=== PATIENT | female | born 1975 | race Caucasian/White ===

== ENCOUNTER 2022-03-10 09:09 | Outpatient (CLI) | payer BC, SELFPAY ==
[2022-03-10 13:51] LABS: Albumin* 3.9 g/dL (3.3-5.0); Chloride* 105 mmol/L (96-114); Sodium* 136 mmol/L (135-149)
[2022-03-10 13:52] LABS: Potassium* 4.3 mmol/L (3.6-5.1)
[2022-03-10 13:54] LABS: Bilirubin Total* 0.4 mg/dL (0.1-1.5); Carbon Dioxide* 29 mmol/L (20-32); Cholesterol* 183 mg/dL (90-199); Creatinine* 0.7 mg/dL (0.5-1.5); Estimated Glomerular Filt Rate 108 ml/min; Total Protein* 6.2 g/dL (6.0-8.3)
[2022-03-10 13:55] LABS: Alanine Aminotransferase* 15 U/L (4-35); Alkaline Phosphatase* 57 U/L (40-150); Aspartate Amino Transferase* 22 U/L (12-35); Blood Urea Nitrogen* 16 mg/dL (5-24); Calcium* 8.8 mg/dL (8.4-10.6); Glucose* 97 mg/dL (60-115); HDL Cholesterol* 77 mg/dL (>=50); LDL Cholesterol Calculated 87 mg/dL (<100); Triglycerides* 94 mg/dL (40-149)
[2022-03-10 13:59] LABS: C Reactive Protein* < 0.5 mg/dL (0.5-1.0)
[2022-03-11 11:51] LABS: Rheumatoid Factor < 10 IU/mL (0-14)
[2022-03-12 02:30] LABS: Anti-Nuclear Ab(ANA)IgG ELISA None Detected (None Detected)
== END 2022-03-10 09:10 | disposition home or self-care (01) ==
PROVIDERS: PCP Physician Assistant Medical; Visit Provider Physician Assistant Medical
DX: Z00.00 Encounter for general adult medical examination without abnormal findings (principal); R10.819 Abdominal tenderness, unspecified site; M54.50 Low back pain, unspecified; Z13.6 Encounter for screening for cardiovascular disorders
CPT/HCPCS: 80053; 80061; 85027; 85651; 86039; 86140; 86431

== ENCOUNTER 2022-03-26 14:59 | Outpatient (CLI) | payer BC, SELFPAY | END 2022-03-26 15:00 | disposition home or self-care (01) | PROVIDERS: PCP Physician Assistant Medical; Visit Provider Otolaryngology | DX: Z00.00 Encounter for general adult medical examination without abnormal findings (principal); H91.8X9 Other specified hearing loss, unspecified ear | CPT/HCPCS: 84443; 86618 ==

== ENCOUNTER 2022-03-27 15:52 | Outpatient (CLI) | payer BC, SELFPAY ==
--- NOTE | 2022-03-27 16:00 | CRLHL7_ITS ---
For Patients: As a result of the Century Cures Act, medical imaging exams and procedure reports are released immediately into your electronic medical record. You may view this report before your referring provider. If you have questions, please contact your health care provider. INDICATION: MILD LLQ PAIN W/PALPATION, LT LOWER BACK PAIN COMPARISON: none TECHNIQUE: 2D jordan scale and color Doppler images were acquired of the pelvis using a transabdominal and transvaginal approach. FINDINGS: Sonographic images demonstrate a normal size and smooth outer contour of the uterus. Uterus measures 10.5 cm in length by 3.5 cm in AP diameter by 5.8 cm in transverse dimension. The myometrium has a normal uniform echotexture. The endometrial lining measures 9 mm in composite thickness. The right ovary measures 2.2 x 1.8 x 1.5 cm in size and the left ovary is not visualized. The right ovary demonstrates normal arterial and venous blood flow on color Doppler analysis. There are no suspicious fluid collections within the cul-de-sac. IMPRESSION: No uterine fibroid. No adnexal mass. Nonvisualization of the left ovary. Dictated by Derick Liu MD @ 03/28/2022 8:58:03 AM (Electronically Signed)
== END 2022-03-27 15:53 | disposition home or self-care (01) ==
LOC: US 15:53
PROVIDERS: PCP Physician Assistant Medical; Visit Provider Physician Assistant Medical
DX: R10.32 Left lower quadrant pain (principal); M54.50 Low back pain, unspecified
CPT/HCPCS: 76830; 76856

== ENCOUNTER 2022-05-06 17:18 | Outpatient (CLI) | payer BC, SELFPAY ==
--- NOTE | 2022-05-06 | CRLHL7_ITS ---
For Patients: As a result of the Century Cures Act, medical imaging exams and procedure reports are released immediately into your electronic medical record. You may view this report before your referring provider. If you have questions, please contact your health care provider. BILATERAL SCREENING MAMMOGRAM WITH COMPUTER-AIDED DETECTION AND TOMOSYNTHESIS TECHNIQUE: CC and MLO views were obtained. These mammographic images have been obtained using full-field digital technique. These mammographic images were interpreted with the benefit of computer-aided detection. Breast Tomosynthesis was used in this interpretation. COMPARISON FILM: 01/18/21, 08/06/18, 06/06/16. FINDINGS: There are scattered areas of fibroglandular density IMPRESSION: There is no radiographic evidence for malignancy. ASSESSMENT: BI-RADS Category 1: Negative RECOMMENDATION: Routine screening mammogram in 1 year. A lay language report of this examination will be provided to the patient. Derick Liu M.D. Diagnostic Radiologist [email or web address] JACOB/Dictated by: Derick Liu MD @ 05/07/2022 8:19:00 AM (Electronically Signed)
== END 2022-05-06 17:19 | disposition home or self-care (01) ==
LOC: MAMMO 17:19
PROVIDERS: PCP Physician Assistant Medical; Visit Provider Physician Assistant Medical
DX: Z12.31 Encounter for screening mammogram for malignant neoplasm of breast (principal)
CPT/HCPCS: 77063; 77067

== ENCOUNTER 2022-07-07 18:29 | Outpatient (CLI) | payer BC, SELFPAY ==
[2022-07-07 22:18] LABS: Iron* 141 ug/dL (37-170)
[2022-07-07 22:28] LABS: Percent Iron Saturation 36 % (20-50); Total Iron Binding Capacity 392 ug/dL (265-497)
[2022-07-07 23:23] LABS: Vitamin B12* 605 pg/mL (243-894)
[2022-07-09 20:30] LABS: Vitamin D, 1,25-Dihydroxy 74.1 pg/mL (19.9-79.3)
== END 2022-07-07 18:30 | disposition home or self-care (01) ==
PROVIDERS: PCP Physician Assistant Medical; Visit Provider Physician Assistant Medical
DX: D64.9 Anemia, unspecified (principal); E55.9 Vitamin D deficiency, unspecified
CPT/HCPCS: 82607; 82652; 83540; 83550

== ENCOUNTER 2022-07-14 07:10 | Outpatient (CLI) | payer BC, SELFPAY ==
--- NOTE | 2022-07-14 07:15 | CRLHL7_ITS ---
For Patients: As a result of the Century Cures Act, medical imaging exams and procedure reports are released immediately into your electronic medical record. You may view this report before your referring provider. If you have questions, please contact your health care provider. INDICATION: Back pain. Left-sided radiculopathy. TECHNIQUE: Multiplanar multisequence noncontrast MR images acquired through the lumbar spine. COMPARISON: None. FINDINGS: The lumbar lordosis is preserved. Vertebral heights maintained. No acute fracture or spondylolisthesis. No concerning T1 hypointense marrow replacing lesions. Normal conus terminates at L2. T12-L1 through L3-4: No spinal canal or neural foraminal narrowing. L4-5: Mild disc degeneration. Shallow posterior disc bulge. Glqe-ua-urcavgnm facet arthropathy. No spinal canal narrowing. Minimal bilateral neural foraminal narrowing. Bikq-mx-drefklxn left and mild right lateral recess narrowing. L5-S1: Djfr-ph-kbgsvkna disc degeneration. Shallow left subarticular/foraminal disc extrusion measuring 3 mm in short axis and demonstrating cephalad migration potentially impinges traversing left S1 nerve roots. Advanced left and uoza-zw-hgyxbqve right facet arthropathy. Left facet joint effusion. Edema within the left articulating facets likely represents a stress response. Left dorsal synovial cyst. No spinal canal narrowing. Moderate left without right neural foraminal narrowing. IMPRESSION: 1. At L5-S1, shallow left subarticular/foraminal disc extrusion potentially impinges traversing left S1 nerve roots. Advanced left facet arthropathy contributes to moderate left neural foraminal narrowing with exiting left L5 nerve root encroachment/impingement. Edema within the left articulating facets likely represents a stress response. 2. At L4-5, fqiy-pa-yveklvve left and mild right lateral recess narrowing. Dictated by Curly Ortiz MD @ 07/14/2022 12:04:34 PM (Electronically Signed)
== END 2022-07-14 07:11 | disposition home or self-care (01) ==
LOC: MRI 07:11
PROVIDERS: PCP Physician Assistant Medical; Visit Provider Family Medicine
DX: M54.50 Low back pain, unspecified (principal); M51.26 Other intervertebral disc displacement, lumbar region; M79.605 Pain in left leg
CPT/HCPCS: 72148

== ENCOUNTER 2022-08-05 11:00 | Outpatient (RCR) | payer BC, SELFPAY | END 2023-03-12 23:59 | disposition home or self-care (01) | PROVIDERS: PCP Physician Assistant Medical; Visit Provider Family Medicine | DX: M79.605 Pain in left leg (principal); M54.50 Low back pain, unspecified; R20.2 Paresthesia of skin; M79.18 Myalgia, other site; Z51.89 Encounter for other specified aftercare | CPT/HCPCS: 97012; 97032; 97110; 97140; 97161 ==

== ENCOUNTER 2022-08-15 09:43 | Outpatient (CLI) | payer BC, SELFPAY | END 2022-08-15 09:44 | disposition home or self-care (01) | LOC: INJ CL 09:44 | PROVIDERS: PCP Physician Assistant Medical; Visit Provider Family Medicine | DX: M54.16 Radiculopathy, lumbar region (principal); M51.26 Other intervertebral disc displacement, lumbar region | CPT/HCPCS: 64483; Q9966 ==

== ENCOUNTER 2023-08-27 08:55 | Outpatient (CLI) | payer BC, SELFPAY | END 2023-08-27 08:56 | disposition home or self-care (01) | PROVIDERS: PCP Physician Assistant Medical; Visit Provider Physician Assistant Medical | DX: Z00.00 Encounter for general adult medical examination without abnormal findings (principal); R63.5 Abnormal weight gain; D64.9 Anemia, unspecified; H91.92 Unspecified hearing loss, left ear | CPT/HCPCS: 80061; 82306; 82670; 82728; 84403; 84439; 84443; 84481; 86376 ==

== ENCOUNTER 2023-10-08 09:16 | Outpatient (CLI) | payer BC, SELFPAY | END 2023-10-08 09:17 | disposition home or self-care (01) | LOC: FRMREF 10-14 13:27 | PROVIDERS: PCP Physician Assistant Medical; Visit Provider Physician Assistant Medical | DX: Z13.89 Encounter for screening for other disorder (principal); R94.6 Abnormal results of thyroid function studies | CPT/HCPCS: 86258; 86364 ==

== ENCOUNTER 2023-12-22 16:05 | Outpatient (CLI) | payer BC, SELFPAY ==
--- NOTE | 2023-12-22 16:20 | MM_ITS ---
Patient: JAIRO ZHANG Facility:?[facility] Patient ID:?[id number] Site Patient ID:?[id number]. Site :?[id number] Study:?XRay-Breast Bilateral 3D W/CAD-12/22/2023 5:42:10 PM Ordering Physician:?Jannet Craft Final Report: BILATERAL SCREENING MAMMOGRAM WITH COMPUTER-AIDED DETECTION AND TOMOSYNTHESIS TECHNIQUE: CC and MLO views were obtained. These mammographic images have been obtained using full-field digital technique. These mammographic images were interpreted with the benefit of computer-aided detection. Breast Tomosynthesis was used in this interpretation. COMPARISON FILM 05/06/22, 01/18/21, 08/06/18. FINDINGS: The breasts are heterogeneously dense, which may obscure small masses. IMPRESSION: There is no radiographic evidence for malignancy. ASSESSMENT: BI-RADS Category 1: Negative RECOMMENDATION: Routine screening mammogram in 1 year. A lay language report of this examination will be provided to the patient. Derick Liu M.D. Diagnostic Radiologist [email or web address] DSM/sp R& Transcribed: 5:31 p.m. SP/Dictated by: Derick Liu MD @ 12/23/2023 10:57:00 AM Signed by:?Derick Liu MD @12/23/2023 6:52:35 PM (Electronic Signature)
== END 2023-12-22 16:06 | disposition home or self-care (01) ==
LOC: MAMMO 16:05
PROVIDERS: PCP Physician Assistant Medical; Visit Provider Physician Assistant Medical
DX: Z12.31 Encounter for screening mammogram for malignant neoplasm of breast (principal); R92.2 Inconclusive mammogram
CPT/HCPCS: 77063; 77067

== ENCOUNTER 2025-04-10 11:07 | Outpatient (CLI) | payer BC, SELFPAY ==
[2025-04-10 13:42] LABS: Hematocrit 37.3 % (33.0-51.0); Hemoglobin* 12.1 gm/dL (12.0-16.0); Immature Granulocytes Abs Auto 0.00 K/uL (0.00-0.30); Immature Granulocytes Pct Auto 0.0 %; Lymphocytes Absolute Auto 1.53 K/uL (0.90-2.90); Mean Corpuscular HGB Conc 32 gm/dL (32-36); Mean Corpuscular Hemoglobin 32 pg (26-34); Mean Corpuscular Volume 100 fL (80-100); RDW Coefficient of Variation % 12.9 % (11.5-15.5); Red Blood Count 3.73 m/uL (4.00-5.20); White Blood Count* 4.61 K/uL (4.50-11.00)
[2025-04-10 13:45] LABS: Slide Review Reflex No
[2025-04-10 22:18] LABS: Albumin* 4.1 g/dL (3.3-5.0); Chloride* 106 mmol/L (96-114)
[2025-04-10 22:19] LABS: Potassium* 4.7 mmol/L (3.6-5.1); Sodium* 137 mmol/L (135-149)
[2025-04-10 22:21] LABS: Alanine Aminotransferase* 12 U/L (4-35); Anion Gap 5 mEq/L (7-15); Aspartate Amino Transferase* 23 U/L (12-35); Blood Urea Nitrogen* 17 mg/dL (5-24); Carbon Dioxide* 26 mmol/L (20-32); Cholesterol* 187 mg/dL (90-199); Creatinine* 0.8 mg/dL (0.5-1.5); Estimated Glomerular Filt Rate 90 ml/min; Total Protein* 6.8 g/dL (6.0-8.3); Triglycerides* 57 mg/dL (40-149)
[2025-04-10 22:22] LABS: Alkaline Phosphatase* 47 U/L (40-150); Bilirubin Total* 0.4 mg/dL (0.1-1.5); Calcium* 9.3 mg/dL (8.4-10.6); Glucose* 87 mg/dL (60-115); HDL Cholesterol* 80 mg/dL (>=50)
== END 2025-04-10 11:08 | disposition home or self-care (01) ==
LOC: NPINS 11:09
PROVIDERS: PCP Physician Assistant Medical; Visit Provider Family Medicine
DX: R63.5 Abnormal weight gain (principal)
CPT/HCPCS: 80050; 80053; 80061; 83036; 84443; 85025